=== PATIENT | female | born 1960 | race Caucasian/White ===

== ENCOUNTER 2024-05-08 10:43 | Emergency (ER) | payer MEDICARE ==
[~2024-05-08] VITALS: Ht 165.1 cm; Wt 80.0 kg
[2024-05-08] MEDS ORDERED: WELLBUTRIN XL300 MG PO (11:21)
[2024-05-08] MEDS ORDERED: CRESTOR40 MG NG (11:21)
[2024-05-08] MEDS ORDERED: OMEPRAZOLE20 MG PO (11:22)
[2024-05-08] MEDS ORDERED: VAGIFEM10 MCG VAGINAL (11:26)
[2024-05-08 11:56] LABS: BASOPHILS 0.4 % (0-2); HEMATOCRIT 43.4 % (35.0-50.0); HEMOGLOBIN 14.7 g/dL (12.0-18.0); LYMPHOCYTES 16.8 % (24-44); MCH 30.7 (27-36); MCHC 33.8 g/dl (30-36); MCV 90.6 fl (81-99); MONOCYTES 13.3 % (0-12); NEUTROPHILS 68.5 % (39-80); PLATELET COUNT 304 K/uL (140-440); RBC 4.78 M/ul (4.3-5.7)
[2024-05-08] MEDS ORDERED: SODIUM CHLORIDE 0.9% 1,000 ML IV PRN (12:00)
[2024-05-08] MEDS ORDERED: ondansetron HCL 4 MG/2 ML VIAL IV ONE ×2 (12:00→15:45)
[2024-05-08] MEDS ORDERED: PANTOPRAZOLE SODIUM 40 MG/10 ML VIAL IV ONE (12:00)
[2024-05-08 12:06] LABS: ALBUMIN 3.7 g/dL (3.4-5.0); ALBUMIN/GLOBULIN RATIO 0.9 (1.1-2.4); ANION GAP 13.7 (7-21); BILIRUBIN, TOTAL 0.4 ng/dL (0.2-1.0); CALCIUM 9.8 mg/dL (8.5-10.1); MAGNESIUM 1.9 mg/dL (1.8-2.4); POTASSIUM 3.7 mmol/L (3.5-5.1); PROTEIN, TOTAL 7.8 g/dL (6.4-8.2)
[2024-05-08 13:42] LABS: INFLUENZA B NAA NEGATIVE (NEGATIVE); RESPIRATORY SYNCYTIAL VIR NAA NEGATIVE (NEGATIVE)
[2024-05-08] MEDS ORDERED: CEFTRIAXONE/SODIUM CHLORIDE 1 GM/100 ML PIGGYBACK IV ONE (14:45)
[2024-05-08] MEDS ORDERED: AMOX TR-K CLV1 EAC1 PO (15:34)
[2024-05-08] MEDS ORDERED: LOMOTIL TABLET1 EACH PO (15:34)
[2024-05-08] MEDS ORDERED: ONDANSETRON ODT4 MG PO (15:34)
[2024-05-08 15:52] VITALS: BP 122/85
== END 2024-05-08 15:53 | disposition home or self-care (01) ==
LOC: ED 10:43
PROVIDERS: Emergency Medicine
DX: K57.32 Diverticulitis of large intestine without perforation or abscess without bleeding (principal); K80.20 Calculus of gallbladder without cholecystitis without obstruction; Z88.2 Allergy status to sulfonamides; Z88.5 Allergy status to narcotic agent; Z91.041 Radiographic dye allergy status; Z79.899 Other long term (current) drug therapy
CPT/HCPCS: 36415; 74176; 80053; 83690; 83735; 85025; 87502; 96361; 96365; 96368; 96375; 96376; 99284-25; J0696; J2405; J2470; J7030; U0002